=== PATIENT | male | born 1990 | race Caucasian/White ===

== ENCOUNTER 2016-11-13 21:33 | Emergency (ER) | payer OTHER ==
[~2016-11-13] VITALS: Ht 180.3 cm; Wt 80.0 kg
[~2016-11-13 21:33] MED LIST: IBUP-238 PO; LORT5TAB PO; SULF1SOL4 OU; Z.0.NO CURRENT MEDS
[2016-11-13 21:36] VITALS: BP 155/74; PULSE 120; RESP 16; TEMP 98.7; O2SAT 99
[2016-11-13] MEDS ORDERED: SODIUM CHLOR 0.9% 1000 ML INJ 1,000 ML IV SCH (22:51)
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
[2016-11-13] MEDS ORDERED: ONDANSETRON HCL 4 MG/2 ML VIAL IVP ONE (23:00)
[2016-11-13] MEDS ORDERED: MORPHINE SULFATE 4 MG/ML INJ IV ONE (23:00)
[2016-11-13] MEDS ORDERED: DIPHTH/TETANUS/ACEL PERTUSSIS (BOOSTER) 0.5 ML VIAL/PFS IM ONE (23:00)
[2016-11-13] MEDS ORDERED: ceFAZolin 2 GM PREMIX 50 ML IV ONE (23:00)
[2016-11-13 23:39] LABS: AUTOMATED NEUTROPHIL # 19.6 TH/MM3 (1.8-7.7); BASOPHIL % 0.2 % (0.0-2.0); EOSINOPHIL % 0.1 % (0.0-4.0); HEMATOCRIT 48.4 % (39.0-51.0); HEMO FLAGS DIFF FINAL; LYMPH % 6.8 % (9.0-44.0); LYMPHOCYTE # 1.5 TH/MM3 (1.0-4.8); MEAN CELL VOLUME 94.1 FL (80.0-100.0); MEAN CORPUSCULAR HEMOGLOBIN 33.3 PG (27.0-34.0); MEAN CORPUSCULAR HGB CONC 35.4 % (32.0-36.0); MONO % 5.5 % (0.0-8.0); NEUT % 87.4 % (16.0-70.0); PLATELET COUNT 254 TH/MM3 (150-450); RED BLOOD COUNT 5.14 MIL/MM3 (4.50-5.90); RED CELL DISTRIBUTION WIDTH 13.1 % (11.6-17.2); WHITE BLOOD COUNT 22.4 TH/MM3 (4.0-11.0)
[2016-11-13 23:41] LABS: APTT (PATIENT) 24.8 SEC (24.3-30.1); INTERNATIONAL NORMALIZED RATIO 1.1 RATIO
[2016-11-13 23:48] LABS: ALKALINE PHOSPHATASE 79 U/L (45-117); TOTAL BILIRUBIN ADULT 0.7 MG/DL (0.2-1.0)
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
--- NOTE | 2016-11-13 23:54 | RADRPT ---
EXAM DATE/TIME: 11/13/2016 23:37 [facility] COMPARISON: No previous studies available for comparison. INDICATIONS : Entire right ankle pain post LONGTERM. MEDICAL HISTORY : None. SURGICAL HISTORY : None. ENCOUNTER: Initial ACUITY: 1 day PAIN SCORE: 6/10 LOCATION: Right ankle FINDINGS: Three view exam was performed of the right ankle. Nondisplaced linear fracture through the medial mal leolus with intra-articular extension. Associated regional soft tissue swelling. Ankle mortise is pre served. CONCLUSION: Nondisplaced fracture through the medial malleolus with intra-articular extension. No disruption of the ankle mortise, however. Rod Walton MD on November 13, 2016 at 23:51 Board Certified Radiologist. This report was verified electronically.
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
[2016-11-14 00:09] LABS: ALT (GPT) 30 U/L (12-78); ANION GAP 11 MEQ/L (5-15); AST (GOT) 33 U/L (15-37); BLOOD UREA NITROGEN 6 MG/DL (7-18); CHLORIDE 102 MEQ/L (98-107); GLOMERULAR FILTRATION RATE 91 ML/MIN (>89); POTASSIUM 3.5 MEQ/L (3.5-5.1); SODIUM (NA) 137 MEQ/L (136-145)
[2016-11-14] MEDS ORDERED: IOHEXOL 350 MG/ML 10 ML VIAL (for RAD DIAG) IV ONE (01:53)
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
[2016-11-14] MEDS ORDERED: PERC5TAB12 PO (02:36)
[2016-11-14] MEDS ORDERED: CEPH-460 PO (02:36)
[2016-11-14] MEDS ORDERED: IBUP800T23 PO (02:36)
[2016-11-14] MEDS ORDERED: MORPHINE SULFATE 4 MG/ML INJ IV PUSH ONE (02:45)
[2016-11-14 04:24] VITALS: BP 139/70; PULSE 99; RESP 16; O2SAT 98
== END 2016-11-14 04:24 | disposition home or self-care (01) ==
LOC: NEPD 21:33
DX: S42.101A Fracture of unspecified part of scapula, right shoulder, initial encounter for closed fracture (principal); S82.891A Other fracture of right lower leg, initial encounter for closed fracture; T14.8 Other injury of unspecified body region; F17.210 Nicotine dependence, cigarettes, uncomplicated; V29.49XA Motorcycle driver injured in collision with other motor vehicles in traffic accident, initial encounter; Y92.410 Unspecified street and highway as the place of occurrence of the external cause; Z23 Encounter for immunization
CPT/HCPCS: 29515; 71010; 71260; 72125; 73030; 73610; 73630; 74177; 80053; 85025; 85610; 85730; 90471; 90715; 96365; 96375; 99285; E0113; J0690; J2270; J2405; J7030; L0150; Q9967